=== PATIENT | female | born 1985 | race Two or more races ===

== ENCOUNTER 2021-02-12 02:01 | Emergency (ER) | payer OTHER ==
[~2021-02-12] VITALS: Ht 162.6 cm; Wt 109.1 kg
[2021-02-12] MEDS ORDERED: ALBU8HFA IH (02:12)
[2021-02-12 03:03] LABS: COVID AG,FIA SOURCE NASOPHARYNGEAL
[2021-02-12 03:41] LABS: INFLUENZA TYPE A NEGATIVE FOR TYPE A (NEGATIVE); INFLUENZA TYPE B NEGATIVE FOR TYPE B (NEGATIVE)
[2021-02-12 04:15] VITALS: BP 119/68
[2021-02-12 12:40] LABS: RAPID GROUP A STREP NEGATIVE (NEGATIVE)
== END 2021-02-12 04:34 | disposition home or self-care (01) ==
LOC: EMS 02:07
DX: J02.9 Acute pharyngitis, unspecified (principal); J06.9 Acute upper respiratory infection, unspecified; J45.909 Unspecified asthma, uncomplicated; Z20.822 Contact with and (suspected) exposure to COVID-19
CPT/HCPCS: 87430; 87804; 99283